=== PATIENT | female | born 1990 | race Caucasian/White ===

== ENCOUNTER 2018-03-25 00:44 | Inpatient (IN) | payer MEDICAID ==
[2018-03-25 01:08] VITALS: BMI 30.7
[2018-03-25] MEDS ORDERED: Lactated Ringer's 1,000 ML IV ONE (01:08)
[2018-03-25] MEDS ORDERED: Betamethasone Soluspan 30 mg/5mL Inj Susp IM ONE (01:13)
[2018-03-25] MEDS ORDERED: Lactated Ringer's 1,000 ML IV SCH (01:15)
[2018-03-25] MEDS ORDERED: Penicillin G 5 Million Unit Vial IVPB ONE (01:21)
[2018-03-25 01:33] LABS: BASO # 0.1 K/uL (0.0-0.2); BASO % 0.7 % (0.0-2.0); EOS % 0.4 % (0.0-4.0); HEMOGLOBIN 12.6 g/dL (12.0-16.0); LYMPH # 1.5 K/uL (1.0-4.3); LYMPH % 14.7 % (20.0-40.0); MEAN CELL VOLUME 84.4 fl (81.0-99.0); MEAN CORPUSCULAR HEMOGLOBIN 28.4 pg (27.0-31.0); MEAN CORPUSCULAR HGB CONC 33.6 g/dL (33.0-37.0); MEAN PLATELET VOLUME 7.8 fl (7.2-11.7); MONO # 0.8 K/uL (0.0-0.8); MONO % 7.6 % (0.0-10.0); NEUT % 76.6 % (50.0-75.0); NRBC % 0.1 % (0.0-0.0); RBC 4.46 Mil/uL (3.80-5.20); RED CELL DISTRIBUTION WIDTH 13.4 % (11.5-14.5); WHITE BLOOD COUNT 10.5 K/uL (4.8-10.8)
[2018-03-25] MEDS ORDERED: Oxytocin 30 UNITS in Sodium Chloride 0.9% 500 ML IV ONE (01:34)
[2018-03-25] MEDS ORDERED: Lidocaine 1% Inj (20ml) ONE (01:43)
[2018-03-25] MEDS ORDERED: Oxycodone/Acetaminophen 5/325 mg Tab PO PRN ×4 (02:07→05:26)
[2018-03-25] MEDS ORDERED: Benzocaine/Menthol SPRAY TOP PRN ×2 (02:07→05:26)
[2018-03-25] MEDS ORDERED: OXYTOCIN IV ONE (02:28)
[2018-03-25] MEDS ORDERED: NS IV ONE (02:28)
--- NOTE | 2018-03-25 02:28 | OBDS ---
DELIVERY PERSONNEL Delivery Doctor: Esteban Bolanos MD Brake Repairer: Gemma Kerns RN Resident: Dr. Manning MATERNAL INFORMATION Delivery Anesthesia: Local Medications in Delivery: Oxytocin Estimated Blood Loss (ml): 100 Placenta Cultured: Yes Maternal Complications: Premature Rupture of Membranes Provider Comments: Precipitous vaginal delivery over intact perineum followed by shoulders and rest of infant, cord clamped and cut, infant placed in warmer with chief growth officer, cord blood obtained, plac enta delivered spontaneously, fundus firm, first degree laceration repaired with 2-0 vicryl rapide, [id number], pt tolerated procedure LABOR SUMMARY EDC: 05/13/2017 00:00 No. Babies in Womb: 1 Attempted: No LABOR INFORMATION Reason for Induction: Not Applicable Oxytocin: N/A Antibiotics # of Doses: 1 Steroids Given: Partial Course Reason Steroids Not Administered: Indication; Imminent Delivery MEMBRANES Membranes Rupture Method: Spontaneous Rupture of Membranes: 03/24/2018 00:00 Amniotic Fluid Color: Clear
--- NOTE | 2018-03-25 02:30 | OBADHP ---
Datetime: 03/25/2018 01:28 Admit Comment, IP Provider: Pt is a 28 yo F IUP @ 33wk SHAUN is 05/13/17 based on reported LMP 08/06/17. Pt states she woke up out of sleep yesterday at midnight to a gush of fluid, she started having contractions yesterday every 20 mins, now they are 2-3 mins apart, she also has reddish vaginal muco us, and nausea. Denies vaginal bleeding, fevers, dizziness, headache, blurry vision, chest pain, SOB, vomiting, diarrhea, constipation, dysuria; Reports good movement. PNP: [facility] PNL: Unknown ABO blood type, other labs unremarkable, Received TDAP OB HX: No complications Facilities Maintenance Supervisor Hx: No STI's PMHx: Denies Meds: Hasn't taken vitamins for months due to nausea, takes "thygleson" for nausea Allergies: NKDA Surg Hx: Denies Social Hx: Denies smoking, EtOh, drugs Family Hx: Neck cancer PHYSICAL EXAM General: Lying in bed uncomfortable in pain, NAD HEENT: NCAT, EOMI Heart: no murmurs, regular rate and rhythm, S1, S2 normal. Lungs: clear to auscultation bilaterally, no wheezing, rales or rhonchi Abdomen: Gravid, soft non tender to palpation, + BS LE: No edema Heart Rate: 150, moderate variability, Category 1, 15x15 Bimanual- 9 cm A/P: 28 yo F IUP @ 33wk here for contractions -Admit to L _ D. -Initiate Labor protocol -Bimanual -9cm -IVF, Pitocin -Betamethasone x1 -PCN G 5, then 2.5 -Monitor heart tracings 150 moderate variability, Category 1 Case reviewed and discussed with Attending Edelmira Manning M.D. PGY-[address] Bolanos: Patient evaluated independently and I agree with the above Pelvic Type - PN: Adequate Extremities - PN: Normal Abdomen - PN: Normal Back - PN: Not Done Breast - PN: Not Done Lungs - PN: Normal Heart - PN: Normal Thyroid - PN: Not Done Neurologic - PN: Not Done HEENT - PN: Normal General - PN: Normal FHR - Baseline A Provider: 140 DELILAH Beasley Physical Exam: Bimanual- 9 cm IP Hx Assessment: The History has been Reviewed and is Current Vital Signs Provider: Reviewed; Within Normal Limits IP Chief Complaint: Uterine contractions; Suspected ruptured membranes NICHD Variability Prov Fetus A: Moderate 6-25bpm NICHD Accel Fetus A IP Provider: 15X15 FHR Category Provider Fetus A: Category I Dilatation, Provider: 9 Genitourinary Exam: Normal DTRs - PN: Not Done EGA AdmitDate IP: 85.1 IP Adm Impression: , intrauterine ; Active labor; Ruptured Membranes IP Admit Plan: Admit to unit; Initiate labor protocol
--- NOTE | 2018-03-25 07:55 | OBPPN ---
Datetime: 03/25/2018 06:22 PP Pain Prov: Within normal limits PP Nausea Prov: Denies PP Flatus Prov: No PP BM Prov: No PP Breasts Prov: Not Done PP Heart Prov: Normal PP Lungs Prov: Normal PP Abdomen/Uterus Prov: Normal PP Lochia Prov: Normal PP Vulva/Perineum Prov: Not Done PP CVA Tenderness Prov: Not Done PP Extremities Prov: Normal PP C/S Incision Prov: Not Applicable PP Progress Prov: Normal PP Impression Prov: Normal progression PP Plan Prov: Continue present management PP Progress Note Prov: PPD0 S: 28yo delivered on 03/25/18 @ 1:47. Seen and examined at bedside. No acute events over night. Pt reports mild pain controlled with pain meds. Ambulating well without dizziness. Wants to br east and bottle feed. Will try and advance diet today for breakfast, pt had hyperemesis during the pr egnancy denies nausea or vomiting currently. Lochia is similar to menses volume. Voiding freely with no blood noted, No Bowel movement or passing gas yet per rectum. Denies fever/chills, diarrhea/consti pation, CP/SOB, dizziness, calf pain. O: PHYSICAL EXAM: GEN: Resting comfortably in bed, NAD LUNGS: CTA B/L, no wheezing, rhonchi, or rales CVS: RRR, S1, S2, no m/r/g ABD: ND, +BS, firm fundus @ umbilical level. Soft, appropriate TTP EXT: No edema, calves non tender A/P: 28yo s/p on 03/25/18 Pt doing well on PPD0 Advance regular diet as tolerated OOB with caution Continue vitamin Ibuprofen 600 mg 1 tab q6 hrs po if mild pain. Encourage Anticipate discharge to home on 03/27/18 F/U in 1 week for appt and in 4-6 weeks post- [facility] Case reviewed and discussed with Attending Edelmira Acosta M.D. PGY-1 OB Hospitalist Addendum: Pt seen and examined by me. Agree w/above. PPD 0 s/p at 33 wks, [place] nning to breast feed. Continue current care. (ES) IP PP Procedures: None Vital Signs Provider PP: Reviewed; Within Normal Limits
[2018-03-25] MEDS ORDERED: Multivitamin With Minerals Tab PO SCH (09:00)
[2018-03-25] MEDS: Multivitamin With Minerals Tab PO SCH (10:09)
[2018-03-26 08:00] LABS: HEMOGLOBIN 10.8 g/dL (12.0-16.0); MEAN CELL VOLUME 84.6 fl (81.0-99.0); MEAN CORPUSCULAR HEMOGLOBIN 28.3 pg (27.0-31.0); MEAN CORPUSCULAR HGB CONC 33.5 g/dL (33.0-37.0); RBC 3.82 Mil/uL (3.80-5.20); RED CELL DISTRIBUTION WIDTH 13.8 % (11.5-14.5); WHITE BLOOD COUNT 9.8 K/uL (4.8-10.8)
[2018-03-26] MEDS: Multivitamin With Minerals Tab PO SCH (08:35)
--- NOTE | 2018-03-26 10:35 | OBPPN ---
Datetime: 03/26/2018 05:44 PP Pain Prov: Within normal limits PP Nausea Prov: Denies PP Flatus Prov: Yes PP BM Prov: No PP Breasts Prov: Not Done PP Heart Prov: Normal PP Lungs Prov: Normal PP Abdomen/Uterus Prov: Normal PP Lochia Prov: Normal PP Vulva/Perineum Prov: Not Done PP CVA Tenderness Prov: Not Done PP Extremities Prov: Normal PP C/S Incision Prov: Not Applicable PP Progress Prov: Normal PP Comments Phys Exam Prov: Abd: Soft, NT, BS- present UT- Firm PP Impression Prov: Normal progression PP Plan Prov: Continue present management PP Progress Note Prov: PPD1 S: 28yo delivered on 03/25/18 @ 1:47. Seen and examined at bedside. No acute events over night. Pt reports mild pain controlled with pain meds. Ambulating well without dizziness. Is self toyin ast feeding while baby is in the NICU. Tolerating regular diet. Lochia is similar to menses volume. V oiding freely with no blood noted, No Bowel movement yet but is passing gas per rectum. Denies fever/ chills, diarrhea/constipation, nausea/vomiting, CP/SOB, dizziness, calf pain. O: PHYSICAL EXAM: GEN: Resting comfortably in bed, NAD LUNGS: CTA B/L, no wheezing, rhonchi, or rales CVS: RRR, S1, S2, no m/r/g ABD: ND, +BS, firm fundus @ umbilical level, soft non tender to palpation EXT: No edema, calves non tender A/P: 28yo s/p on 03/25/18 Pt doing well on PPD1 Tolerating regular diet OOB with caution Continue vitamin Ibuprofen 600 mg 1 tab q6 hrs po if mild pain. Encouraged Anticipate discharge to home on 03/27/18 F/U in 1 week for appt and in 4-6 weeks post- [facility] Case reviewed and discussed with Attending Edelmira Manning M.D. PGY-1 IP PP Procedures: None Vital Signs Provider PP: Reviewed; Within Normal Limits
[2018-03-27] MEDS: Multivitamin With Minerals Tab PO SCH (08:21)
--- NOTE | 2018-03-27 16:40 | OBPPN ---
Datetime: 03/27/2018 08:25 PP Pain Prov: Within normal limits PP Nausea Prov: Denies PP Flatus Prov: Yes PP BM Prov: Yes PP Breasts Prov: Not Done PP Heart Prov: Normal PP Lungs Prov: Normal PP Abdomen/Uterus Prov: Normal PP Lochia Prov: Normal PP Vulva/Perineum Prov: Normal PP CVA Tenderness Prov: Normal PP Extremities Prov: Normal PP C/S Incision Prov: Not Applicable PP Progress Prov: Normal PP Impression Prov: Normal progression PP Plan Prov: Continue present management; Discharge PP Progress Note Prov: PPD2 S: 28yo delivered on 03/25/18 @ 1:47. Seen and examined at bedside. No acute events over night. Denies any health issues, ambulating, breast feeding, trolerating po, had BM and voiding freel y. Denies any pain or bleeding (mild spotting). ROS unremarkable O: PHYSICAL EXAM: GEN: Resting comfortably in bed, NAD LUNGS: CTA B/L, no wheezing, rhonchi, or rales CVS: RRR, S1, S2, no m/r/g ABD: ND, +BS, firm fundus @ umbilical level, soft, NT/ND EXT: No edema, calves non tender A/P: 28yo s/p on 03/25/18 Pt doing well on PPD2 Tolerating regular diet OOB with caution Continue vitamin Ibuprofen 600 mg 1 tab q6 hrs po if mild pain. Encouraged Anticipate discharge to home on 03/27/18 F/U in 1 week for appt and in 4-6 weeks post- [facility] Case reviewed and discussed with Attending --- Dr. Cantrell, PGY-II Attending Note: Patient was seen with Resident and I agree with the above assessment. IP PP Procedures: None Vital Signs Provider PP: Reviewed
--- NOTE | 2018-03-27 16:44 | OBPPN ---
Datetime: 03/27/2018 08:25 PP Progress Note Prov: PPD2 S: 28yo delivered on 03/25/18 @ 1:47. Seen and examined at bedside. No acute events over night. Denies any health issues, ambulating, breast feeding, trolerating po, had BM and voiding freel y. Denies any pain or bleeding (mild spotting). ROS unremarkable O: PHYSICAL EXAM: GEN: Resting comfortably in bed, NAD LUNGS: CTA B/L, no wheezing, rhonchi, or rales CVS: RRR, S1, S2, no m/r/g ABD: ND, +BS, firm fundus @ umbilical level, soft, NT/ND EXT: No edema, calves non tender A/P: 28yo s/p on 03/25/18 Pt doing well on PPD2 Tolerating regular diet OOB with caution Continue vitamin Ibuprofen 600 mg 1 tab q6 hrs po if mild pain. Encouraged Anticipate discharge to home on 03/27/18 F/U in 1 week for appt and in 4-6 weeks post- [facility] Case reviewed and discussed with Attending --- Dr. Cantrell, PGY-II Attending Note: Patient was seen with Resident and I agree with the above assessment. Patient was discussed with the resident and I agree with the above assessment.
--- NOTE | 2018-03-27 16:46 | OBDCSUM ---
Datetime: 03/27/2018 11:06 Discharged to, Provider: Home Follow up at, Provider: [facility] Disch Instr Activity: Normal activity; May be up to bathroom; May be up for meals; May Shower Disch Instr Diet: Regular Discharge Diagnosis, Provider: Term Delivered Discharge Time: 03/27/2018 11:30 Follow up in weeks, Provider: in 4 to 6 weeks Disch Referrals: None Disch Activity Restrictions: No lifting; No sexual activity; Nothing in vagina - [place], tampon s, douche Discharge Comment, Provider: S/P uncomplicated , Clinically Stable Discharge Diagnosis Prov Other: S/P uncomplicated , Clinically Stable Datetime: 03/27/2018 08:28 Discharged to, Provider: Home Follow up at, Provider: [facility] Disch Instr Activity: Normal activity Disch Instr Diet: Regular Discharge Instructions, Provider: Routine instructions given Discharge Diagnosis, Provider: Labor; Delivery Follow up in weeks, Provider: PP in 4 weeks and NB in 2 days Disch Referrals: None Contraception discussed, Prov: Yes Discharge Comment, Provider: PPD2 S: 28yo . 33+ GA,delivered on 03/25/18 @ 1:47. Seen and examined at bedside. No acute chris nts overnight. Denies any health issues, ambulating, breast feeding, trolerating po, had BM and voidi ng freely. Denies any pain or bleeding (mild spotting). ROS unremarkable O: PHYSICAL EXAM: GEN: Resting comfortably in bed, NAD LUNGS: CTA B/L, no wheezing, rhonchi, or rales CVS: RRR, S1, S2, no m/r/g ABD: ND, +BS, firm fundus @ umbilical level, soft, NT/ND EXT: No edema, calves non tender A/P: 28yo s/p on 03/25/18 Pt doing well on PPD2, labor Tolerating regular diet OOB with caution Continue vitamin Ibuprofen 600 mg 1 tab q6 hrs po if mild pain. Encouraged S/p Steroids and PCN Anticipate discharge to home on 03/27/18, today Patient aware and agrees with the discharge plan F/U in 1 week for appt and in 4-6 weeks post- [facility] Case reviewed and discussed with Attending --- Dr. Cantrell, PGY-II
[2018-03-27 18:42] VITALS: BP 119/79; PULSE 67; RESP 20; TEMP 97.1
== END 2018-03-27 14:30 | disposition home or self-care (01) | DRG 372 ==
LOC: H.EROB2 00:44 → H.L&D 01:08 → H.OB/GYN 05:28
PROVIDERS: ADMIT Obstetrics & Gynecology; ATTEND Obstetrics & Gynecology
PROC: 10E0XZZ Delivery of Products of Conception, External Approach (ICD-10-PCS; principal; 2018-03-25)
PROC: 4A1HXCZ Monitoring of Products of Conception, Cardiac Rate, External Approach (ICD-10-PCS; 2018-03-25)
PROC: 0HQ9XZZ Repair Perineum Skin, External Approach (ICD-10-PCS; 2018-03-25)
DX: O62.3 Precipitate labor (principal); O60.14X0 Preterm labor third trimester with preterm delivery third trimester, not applicable or unspecified; O70.0 First degree perineal laceration during delivery; Z3A.33 33 weeks gestation of pregnancy; Z37.0 Single live birth